=== PATIENT | female | born 1955 | race Two or more races ===

== ENCOUNTER 2021-12-01 05:47 | Day surgery (SDC) | payer OTHER | END 2021-12-01 09:30 | disposition home or self-care (01) | LOC: AMB-ENDOS 05:47 | PROVIDERS: ATTEND Colon & Rectal Surgery | DX: D12.2 Benign neoplasm of ascending colon (principal); Z86.010 Personal history of colon polyps; Z20.822 Contact with and (suspected) exposure to COVID-19; E03.9 Hypothyroidism, unspecified; E78.5 Hyperlipidemia, unspecified; I10 Essential (primary) hypertension; K64.0 First degree hemorrhoids ==